=== PATIENT | male | born 2000 | race Caucasian/White ===

== ENCOUNTER 2024-08-19 15:26 | Inpatient (IN) ==
--- NOTE | 2024-08-19 16:09 | Emergency Department Note ---
History of Present Illness General Chief complaint: Laceration/Cut (Suture/Dermabond) Stated complaint: LT FOOT/LAC BY CHAINSAW Time Seen by Provider: 08/19/24 16:09 History of Present Illness Maximum Pain Intensity: 8 This is a 24-year-old male that presents to the emergency department via private vehicle with complaints of "left foot laceration". The patient notes that today around 2:45 PM he was operating a chainsaw cutting wood. In the saw caught causing a laceration through the boot of the left foot and then to the left foot. He points to a laceration overlying the distal left foot near the first MTP joint as the location of pain and injury. He denies any other pertinent past medical history, surgeries or allergies. He does note history of tetanus shot previously about 4-5 years ago but does wish to have this updated today. Allergies Allergy/AdvReac Type Severity Reaction Status Date / Time No Known Allergies Allergy Unverified 08/19/24 17:33 Past Med/Surg History Problem List (Updated 08/19/24 @ 17:38 by Alan Goff PA-C) Foot laceration (Acute) Open fracture of foot (Acute) Contact with chainsaw as cause of accidental injury (Acute) Social History Smoking Status: Never smoker Preferred Language: Bahamian Feels Safe at Home: Yes Review of Systems A total of 10 systems reviewed and were otherwise negative Physical Exam Vital Signs Vital Signs - 24 hr 08/19/24 15:50 Temperature 36.7 C Temperature Source Temporal Artery Scan Pulse Rate 72 Pulse Strength Normal Respiratory Rate 19 Respiratory Effort / Characteristics Non-Labored Spontaneous Respiratory Depth Normal Respiratory Pattern Regular Blood Pressure 135/85 Blood Pressure Mean 101 Blood Pressure Position Sitting Pulse Oximetry 99 Oxygen Delivery Method Room Air VITAL SIGNS - Vital signs and nursing notes were reviewed. Stable and afebrile. GENERAL -24-year-old male appearing his stated age who is in no acute distress. Communicates well with provider and answers questions appropriately. SKIN -large defect to the integument overlying the dorsal and medial aspect of the left first MTP joint region HEAD - NC/AT. EXTREMITIES - No clubbing or peripheral cyanosis. Patient with mild active extension of flexion of the left first toe at the MTP joint. Large wound as described above. +5/5 strength noted in UE/LE bilaterally. NEUROLOGIC -sensory intact to light touch that the left lower extremity without deficit PSYCH -alert, oriented and pleasant on exam Course Administered Medications Discontinued Medications Diphtheria/Pertussis/Tetanus Vacc (Diphther/Tetan/Pertus Vaccine (Tdap, Adol/Adult) 0.5ml) 0.5 ml IM .ONCE ONE Stop: 08/19/24 16:15 Last Admin: 08/19/24 16:37 Dose: 0.5 ml Documented By: NIKUNJ Cefazolin Sodium (Ancef 2000mg) 2,000 mg in 15 mls @ 3.75 mls/min IV NOW STA Stop: 08/19/24 16:17 Last Admin: 08/19/24 16:52 Dose: 3.75 mls/min Documented By: SARIAH Morphine Sulfate (Morphine Sulfate 4 Mg/Ml 1 Ml Carp\\Vial) 4 mg IV NOW STA Stop: 08/19/24 16:21 Last Admin: 08/19/24 16:42 Dose: 4 mg Documented By: NIKUNJ Ondansetron HCl (Ondansetron Inj 2 Mg/Ml 2 Ml Vial) 4 mg IV NOW STA Stop: 08/19/24 16:21 Last Admin: 08/19/24 16:40 Dose: 4 mg Documented By: NIKUNJ Medical Decision Making Imaging Data Radiologist's Impression: Foot X-Ray 08/19/24 16:03 HISTORY: No history is available at the time of interpretation. TECHNIQUE: Nonweightbearing left foot, 3 views COMPARISON: None. FINDINGS: Fracture or surgical defect involving the medial aspect of the metaphyseal region of the distal first metatarsal with overlying soft tissue laceration and edema. No radiopaque soft tissue foreign body is evident. There is no overlying bandage. The remaining bones appear intact. The surrounding soft tissues are otherwise unremarkable IMPRESSION: 1. Fracture or postsurgical defect involving the medial aspect of the metaphyseal region of the distal first metatarsal with overlying soft tissue laceration and edema. Recommend correlation with patient history as no history is provided. 2. Bones appear otherwise intact. Electronically signed by Reji Mike 08-19-2024 4:50 PM MDM Narrative Patient was seen and evaluated as above in room D04a. Review was performed of nursing notes and vital signs.After obtaining a thorough history and physical examination the above work up was performed. Patient presents to us today for evaluation of left foot trauma, he notes large laceration with a chainsaw. On my assessment and there is an irregular appearing defect overlying the dorsal and medial aspect of the left first MTP joint region within the soft tissues but this does appear to traverse to bone. Wound is deep, has caused irregular wounds to the soft tissue and is contaminated. Only a tiny bit of bleeding at the present time. No hemorrhage. Options of care were discussed with the patient. X-ray of the left foot was obtained. IV access with established. IV antibiotics, tetanus vaccine, morphine for pain and Zofran also administered. I reviewed benefit versus risk of these medications and through shared medical decision making we will refrain. He notes he had a tetanus shot about 4-5 years ago but would like an update today. This was ordered. Verbal consent was obtained from the patient and imaging of the foot was obtained and sent via our secure messaging service [employer] to the on-call orthopedist, Dr. Fisher. I spoke with Dr. Fisher. Plan is for intervention in the operative suite. Please refer to further documentation regarding his stay. GCS: 15 In the evaluation and treatment of this patient the following differential diagnoses were entertained: Open fracture, soft tissue injury, tendon injury, contamination, among others Impression & Plan Contact with [employer] as cause of accidental injury, Open fracture of foot, Foot laceration Discharge Plan Visit Data Chief Complaint: Laceration/Cut (Suture/Dermabond) Stated Complaint: LT FOOT/LAC BY CHAINSAW ED Provider: Telma Morrow ED Midlevel Provider: Alan Goff Discharge Problem: Contact with angelaw as cause of accidental injury, Open fracture of foot, Foot laceration Patient Disposition: Admitted As Inpatient Condition: Good Discharge Instructions Interventions: ED Discharge Assessment Last Done: 08/19/24 17:33 Forms Stand Alone Forms: My [facility] Referrals Referrals: PCP,NO [Primary Care Provider] - Discharge Problem: Open fracture of foot Qualifiers: Encounter type: initial encounter Laterality: left Qualified Code(s): S92.902B - Unspecified fracture of left foot, initial encounter for open fracture Foot laceration Qualifiers: Encounter type: initial encounter Laterality: left Qualified Code(s): S91.312A - Laceration without foreign body, left foot, initial encounter
[2024-08-19] MEDS: DIPHTHER/TETAN/PERTUS Vaccine (Tdap, Adol/Adult) 0.5mL IM ONE (16:37)
[2024-08-19] MEDS: ONDANSETRON INJ 2 MG/ML 2 ML VIAL IV STA (16:40)
[2024-08-19] MEDS: MoRPHine SULFATE 4 MG/ML 1 ML CARP\\VIAL IV STA (16:42)
--- NOTE | 2024-08-19 16:50 | XRay Report ---
HISTORY: No history is available at the time of interpretation. TECHNIQUE: Nonweightbearing left foot, 3 views COMPARISON: None. FINDINGS: Fracture or surgical defect involving the medial aspect of the metaphyseal region of the distal first metatarsal with overlying soft tissue laceration and edema. No radiopaque soft tissue foreign body is evident. There is no overlying bandage. The remaining bones appear intact. The surrounding soft tissues are otherwise unremarkable IMPRESSION: 1. Fracture or postsurgical defect involving the medial aspect of the metaphyseal region of the distal first metatarsal with overlying soft tissue laceration and edema. Recommend correlation with patient history as no history is provided. 2. Bones appear otherwise intact. Electronically signed by Reji Mike 08-19-2024 4:50 PM
[2024-08-19] MEDS: ceFAZolin 2000MG 2,000 MG/15 ML SYR IV STA (16:52)
[2024-08-19] MEDS ORDERED: ONDANSETRON INJ 2 MG/ML 2 ML VIAL IV PRN ×2 (17:17→18:47)
[2024-08-19] MEDS ORDERED: ATROPINE SULFATE 0.1 MG/ML 10ML SYR IV PRN (17:17)
[2024-08-19] MEDS ORDERED: NALOXONE HCL 0.4 MG/1 ML VIAL/CARP IV PRN (17:17)
[2024-08-19] MEDS ORDERED: HYDROmorphone INJ 1 MG/ML SYRINGE IV PRN (17:17)
[2024-08-19] MEDS ORDERED: FLUMAZENIL 0.1 MG/1 ML 10 ML VIAL IV PRN (17:17)
[2024-08-19] MEDS ORDERED: ePHEDrine sulfate 50 MG/ML AMP IV PRN (17:17)
[2024-08-19] MEDS ORDERED: PROMETHAZINE HCL 6.25 MG in SODIUM CHLORIDE 0.9% 50 ML IV PRN (17:17)
--- NOTE | 2024-08-19 17:17 | Anesthesiology Consultation ---
Date of Service August 19, 2024 Assessment & Plan Chart Review Chart Review: Acceptable Risk for Surgery and Patient NOT seen in Pre Admission Testing Consults Requested none ASA ASA1E Proposed Anesthesia Anesthesia Type: General Risk / Benefits Reviewed With: PT / POA / Parent / Guardian, Accepts Plan and Informed Consent Obtained History Height/Weight Height: 6 ft 3 in Weight: 79.379 kg Allergies Additional Notes: nkda Medications Additional Notes: none NPO Date Last Intake of Fluids: 08/19/24 Time Last Intake of Fluids: 14:00 Date Last Intake of Solids: 08/19/24 Time Last Intake of Solids: 14:00 Past Medical History unreamarkable Exercise / Class Metabolic Activity 1 > 8 Run/Swim/Ski/Tennis Past Anesthesia History No Hx of Anesthesia Complications and No Family Hx of Anesthesia Complications History of PONV No Hx of PONV and No Hx of Motion Sickness Social History Smoking Status: Never smoker Physical Exam Vital Signs Last Vital Signs Temp 36.7 C 08/19/24 15:50 Pulse 72 08/19/24 15:50 Resp 19 08/19/24 15:50 BP 135/85 08/19/24 15:50 Pulse Ox 99 08/19/24 15:50 O2 Del Method Room Air 08/19/24 15:50 Constitutional no acute distress ENMT Mouth: no dentition abnormality Thyromental Distance: > or= 3.5 Finger Breadths Mallampati Class: II Neck normal visual inspection, trachea midline and + facial hair; neck extension not limited Respiratory normal respiratory effort Auscultation: lungs clear to auscultation bilaterally Cardiovascular Rate/Rhythm: regular rate and regular rhythm Heart Sounds: no murmur Vessels: no carotid bruit Musculoskeletal Spine: normal cervical ROM and no pain with cervical ROM Extremities: + extremities abnormal to inspection (left foot) and full ROM of extremities Neurologic moves all extremities Motor/Sensory: no sensory deficit Psychiatric Orientation: alert and oriented x 3
[2024-08-19] MEDS ORDERED: PROPOFOL IV EMULSION 10 MG/ML 20 ML VIAL IV ONE (17:30)
[2024-08-19] MEDS ORDERED: SUCCINYLCHOLINE CHLORIDE 20 MG/ML 10 ML VIAL IV ONE (17:32)
[2024-08-19] MEDS ORDERED: MIDAZOLAM HCL 1 MG/ML 2ML VIAL ONE (17:35)
[2024-08-19] MEDS ORDERED: fentaNYL citrate PF 100 MCG/2 ML VIAL ONE ×2 (17:35→18:14)
--- NOTE | 2024-08-19 17:58 | History & Physical Report ---
Date of Service August 19, 2024 Assessment & Plan (1) Foot laceration: 24-year-old male with a left foot open chainsaw injury to the foot involving the bone and significant soft tissue destruction. Gross contamination. Plan: Orgran taken to the operating room and do an irrigation debridement. The primary goals are to prevent infection. He is gotten the antibiotics as well as tetanus prophylaxis. He will likely stay in the hospital overnight. May need a wound VAC postoperatively. Informed consent was obtained. (2) Open fracture of foot: (3) Contact with chainsaw as cause of accidental injury: History of Present Illness Chief Complaint: .Left foot chainsaw injury. Primary Care Provider: NO PCP Patient is a 24-year-old male [facility] gentleman who injured his foot about 230 today. He had chainsaw injury to the medial aspect of his left foot. He is brought to the emergency room with reveals open fractures of medial side of his foot. There is gross contamination. No other injuries. Last food was around 2:00.. Allergies Allergy/AdvReac Type Severity Reaction Status Date / Time No Known Allergies Allergy Unverified 08/19/24 17:33 Past Med/Surg History Problem List Foot laceration (Acute) Open fracture of foot (Acute) Contact with chainsaw as cause of accidental injury (Acute) Social History Smoking Status: Never smoker Preferred Language: British Feels Safe at Home: Yes Review of Systems All systems reviewed & are unremarkable except as noted in HPI & below. Physical Exam . Physical nation of left foot reveals a gaping wound to the medial aspect around his first MTP joint area. There are some bone destruction. Some gross contamination. He has difficulty flexing extending his toes. He is neurologically intact otherwise. Neck trachea midline, no thyromegaly Respiratory normal respiratory effort, lungs clear to auscultation Cardiovascular RRR, no murmur, no edema Gastrointestinal (Abdomen) normal bowel sounds, soft, nontender, no hepatosplenomegaly Results & Data Results & Data Laboratory Results . Diagnostic Findings . X-rays of the left foot were reviewed. Shows a obvious open soft tissue defect medial side of his foot. There is bone destruction of the metatarsal head. Some slight comminution. The joint itself looks okay. PG Care Time/CCT Total # of Minutes Spent Total Time Spent with Patient: Total time spent is greater than 50% in coordination of care (as documented) at patient's floor/unit and/or counseling patient: Coding Level of Care Code 43938 INT INP/OBS CARE 3/75MIN Diagnoses Foot laceration S91.312A Encounter type: initial encounter Laterality: left Open fracture of foot S92.902B Encounter type: initial encounter Laterality: left Contact with chainsaw as cause of accidental injury W29.3XXA (1) Foot laceration Encounter type: initial encounter Laterality: left Qualified Code(s): S91.312A - Laceration without foreign body, left foot, initial encounter (2) Open fracture of foot Encounter type: initial encounter Laterality: left Qualified Code(s): S92.902B - Unspecified fracture of left foot, initial encounter for open fracture
[2024-08-19] MEDS: GENTAMICIN SULFATE 120 MG in DEXTROSE 5% 100 ML IV ONE (18:17)
[2024-08-19] MEDS: LIDOCAINE 1% LOCAL 20 ML VIAL INFIL ONE (18:30)
[2024-08-19] MEDS ORDERED: ONDANSETRON INJ 2 MG/ML 2 ML VIAL ONE (18:30)
[2024-08-19] MEDS ORDERED: DEXAMETHASONE SOD INJ 4 MG/ML VIAL ONE (18:32)
[2024-08-19] MEDS ORDERED: GENTAMICIN CONSULT ACTIVE PRN (18:47)
[2024-08-19] MEDS ORDERED: ALUMINUM/MAGNESIUM SUSP 30 ML UDC PO PRN (18:47)
--- NOTE | 2024-08-19 18:52 | Operative Report ---
PG Post Operative Report Pre & Post Diagnosis Operation Date: 08/19/24 17:25 Pre-Op diagnosis: Left foot chainsaw injury with open fractures of the first metatarsal Postop diagnosis: Left foot chainsaw injury with open fracture of the first metatarsal with involvement of the first MTP joint. Comminution of the first metatarsal head. No complete fracture. I identified the patient and participated in the time-out.: Yes Procedure Operation Date: 08/19/24 17:25 Irrigation and debridement of left open foot wound and fracture and wound closure. Surgeon Wing Fisher MD Filterer Colton Cole PA-C Estimated Blood Loss 20 Findings Consistent with Post-Op Diagnosis Operative findings revealed a open wound to the medial aspect of his foot. The chainsaw injury did go to involve the metatarsal and took out a chunk of bone but the there was no complete fracture through the bone. There was some comminution. It did extend into the first MTP joint. The extensor and flexor tendons were intact. Moderate gross contamination. Specimens None Anesthesia Type General Complications none Indications The patient is a 24-year-old [facility] gentleman who sustained a chainsaw injury to his left foot earlier today. He was brought to emergency room where x-rays revealed open no wound with some moderate to gross contamination and involvement of the metatarsal. The patient indicated for surgical management, irrigation debridement. It was unclear on preoperative exam whether this involved the first MTP joint. Description of Procedure The patient was taken the operating, identified, placed on the operating table in the supine position. All conductors were appropriately padded. A general anesthetic was implemented. The patient did receive IV Ancef in the ER along with tetanus prophylaxis. We gave him some additional gentamicin preoperatively. A left calf tourniquet was placed. The left foot was then scrubbed with a Hibiclens and then prepped with Betadine in usual sterile fashion. The left leg was elevated exsanguinated with use of an Esmarch and the tourniquet was placed at 300 mmHg. I first ellipsed the edges of the wound site to get rid of the edge tissues and contaminated tissues. I then took out the comminuted bone fragments. Debrided the wound of all obvious debris. We then irrigated the wound extensively. The wound did extend into the first MTP joint. We did distract this joint and irrigated this extensively with 3 L of pulsatile lavage solution. Once this was complete the tourniquet was let down for turn time of 8 minutes. Hemostasis surges electrocautery. Skin was then closed with 2-0 nylon suture in a simple fashion. The foot was then cleaned and dried a sterile dressing was Xeroform, 4 fours, sterile cast padding and a Coban wrap followed by postop shoe were applied. The patient then brought out of general esthesia and transferred to the recovery room in stable condition. The patient tolerated the procedure well and there were no complications. Colton Cole, my physician assistant department manager, was present for the entire procedure. His assistance was required for proper patient positioning, prepping and draping, surgical exposure, retraction, perform the technical details of the operation, closure of the incision site, and placement of the postoperative bandage and shoe. I attest to the content of the Intraoperative Record and any orders documented therein. Any exceptions are noted below.
[2024-08-19] MEDS: fentaNYL citrate PF 100 MCG/2 ML VIAL IV PRN (19:10)
--- NOTE | 2024-08-19 19:34 | Anesthesiology Progress Note ---
Date of Service August 19, 2024 Anesthesia Post Procedure Vital Signs Vital Signs: Temp Pulse Pulse Pulse Resp BP BP 08/19/24 19:25 65 21 104/72 08/19/24 19:15 68 18 114/75 08/19/24 19:05 67 15 118/70 08/19/24 18:56 36 C L 71 15 116/74 08/19/24 17:41 67 08/19/24 17:35 66 16 128/81 08/19/24 15:50 36.7 C 72 19 135/85 Pulse Ox O2 Del Method O2 Flow Rate 08/19/24 19:25 98 Room Air 08/19/24 19:15 98 Room Air 08/19/24 19:05 99 Room Air 08/19/24 18:56 100 Oxymask 6 08/19/24 17:41 08/19/24 17:35 97 Room Air 08/19/24 15:50 99 Room Air Pain Intensity Left Foot: Pain Intensity: 2 Transfer of Care Handoff Completed per policy Notes Mental Status: alert / awake / arousable Patient Amnestic to Procedure: Yes Nausea / Vomiting: adequately controlled Pain: adequately controlled Airway Patency, RR, SpO2: stable & adequate BP & HR: stable & adequate Hydration State: stable & adequate Anesthetic Complications: no major complications apparent
[2024-08-19] MEDS: ASPIRIN 81 MG ECTAB PO SCH (20:40)
[2024-08-19] MEDS: oxyCODONE/ACETAMINOPHEN 5mg/325mg TAB PO PRN (20:47)
[2024-08-19 21:34] VITALS: O2SAT 98
[2024-08-19] MEDS: ACETAMINOPHEN 325 MG TAB PO PRN (23:14)
[2024-08-19] MEDS: Patient's ALLERGY Info needs ENTERED STA (23:32)
[2024-08-20] MEDS: ceFAZolin 2000MG 2,000 MG/15 ML SYR IV SCH (01:10)
[2024-08-20] MEDS: GENTAMICIN SULFATE 550 MG in DEXTROSE 5% 100 ML IV ONE (01:13)
--- NOTE | 2024-08-20 07:59 | Orthopedic Progress Note ---
Date of Service August 20, 2024 Assessment & Plan (1) Open fracture of foot: Plan: 24-year-old male postop day 1 from I&D of a left forefoot chainsaw injury with bone involved. He is doing pretty well. Plan: We are going to finish out his 24 hours of IV antibiotics and then convert him to p.o. Augmentin for 5 days. Will get him up and mobilize some today. Limited weightbearing. Likely discharge later this morning or early afternoon. (2) Foot laceration: (3) Contact with chainsaw as cause of accidental injury: Admission and Anticipated Discharge Date Admission Date: August 19, 2024 Subjective 24-year-old male postop day 1 from I&D of a open for foot injury from a chainsaw. He is doing pretty well this morning. Not much pain when lying down but moderately discomfort when walking. He has been to the bathroom a couple times. No new complaints. No chest pain. Physical Exam Physical Exam: Physical exam shows a pleasant 24-year-old male. Lying bed looks pretty comfortable. Examination of the foot reveals the dressing be clean dry and intact. His toes are well-perfused. There is no drainage. He is neurologically intact. Results & Data Vital Signs (Past 12 Hours) Vital Signs Temp Pulse Resp BP Pulse Ox O2 Del Method 08/20/24 01:22 36.7 C 65 18 108/63 98 Room Air 08/19/24 22:00 36.7 C 72 18 120/63 98 Room Air 08/19/24 21:00 36.7 C 61 16 115/69 98 Room Air 08/19/24 20:43 36.7 C 62 14 121/76 97 Room Air 08/19/24 20:00 36.7 C 62 16 120/77 100 Room Air (1) Open fracture of foot Encounter type: initial encounter Laterality: left Qualified Code(s): S92.902B - Unspecified fracture of left foot, initial encounter for open fracture (2) Foot laceration Encounter type: initial encounter Laterality: left Qualified Code(s): S91.312A - Laceration without foreign body, left foot, initial encounter
[2024-08-20 08:04] VITALS: BP 117/71; PULSE 62; RESP 16; TEMP 97.5
--- NOTE | 2024-08-23 11:55 | Discharge Summary ---
Date of Service August 23, 2024 Admission HPI (Per Admitting) Patient is a 24-year-old male [facility] gentleman who injured his foot about 230 today. He had chainsaw injury to the medial aspect of his left foot. He is brought to the emergency room with reveals open fractures of medial side of his foot. There is gross contamination. No other injuries. Last food was around 2:00.. Admission Exam (Per Admitting) . Physical nation of left foot reveals a gaping wound to the medial aspect around his first MTP joint area. There are some bone destruction. Some gross contamination. He has difficulty flexing extending his toes. He is neurologically intact otherwise. Principal Diagnosis Same as "Discharge Diagnosis" noted below under Discharge Instructions. Discharge Data Procedures Performed Operation Date: 08/19/24 17:25 Actual Procedures p Irrigation and Debridement of Open Fracture, Left Foot(Left) - Wing Fisher MD Hospital Course (1) Foot laceration: This is a 24 year old patient admitted on 08/19/24 after a chainsaw injury to his left foot and underwent I and D/wound closure. He tolerated the procedure well and there were no complications. Transferred to the PACU post op and later to the orthopedic floor for further care. He was given ancef and gentamycin for antibiotic prophylaxis and tetanus vaccine was updated. He was also given aspirin for DVT prophylaxis. Vital signs were monitored during his hospital stay and remained stable. Did not require any blood transfusions. There were no complications during his hospital stay. By post op day #1the patient was tolerating a regular diet, pain was reasonably controlled with oral pain medicine. On post op day #1 the patient was discharged home. He was given printed discharge instructions including prescriptions for percocet and augmentin. Follow up approximately 2 weeks post op or sooner if there are problems or concerns. Encounter type: initial encounter Laterality: left Qualified Code(s): S91.312A - Laceration without foreign body, left foot, initial encounter Discharge Plan Discharge Items Patient Disposition: Home - Self-Care Reason For Visit: LEFT FOOT OPEN FRACTURES Discharge Diagnosis: Left Foot chainsaw injury with Open Fracture Condition on Discharge: Good Activity: Per Instructions section Activity Comment: Limited walking. Foot elevation as much as possible Weightbearing: Full weightbearing Weightbearing Comment: Weightbear as tolerated but elevate foot as much as possible Non-emergency contact: Surgeon Call non-emergency contact if: you have any medication questions Follow-up/Referrals: Wing Fisher MD [Physician] - (Orthopedic follow-up 2-3 weeks) PCP,NO [Primary Care Provider] - Diet: Regular Addtl Attending Provider Instructions: Limited walking for next 3 weeks Keep dressing/bandage clean, dry and in place until follow-up appointment Elevate foot as much as possible. Pending Studies at Discharge: No Stand-Alone Forms: [facility], Smoking Cessation Medications and DC Order Prescriptions: New oxycodone-acetaminophen [Percocet] 5-325 mg Tablet 1 - 2 tab PO Q8H PRN (Reason: pain) Qty: 30 0RF Rx Instructions: Take as needed for Pain. amoxicillin-pot clavulanate [Augmentin] 500-125 mg tablet 1 tab PO Q8H 5 Days Qty: 15 0RF Rx Instructions: Take to prevent infection. Discharge Orders: Discharge Order (Routine); Ordered 08/20/24 Ordered By: Wing Fisher Admission Data Admit Date/Time: 08/19/24 18:47 Attending Provider: Wing Fisher Admit Provider: Gisel Fisher Primary Care Provider: PCP,NO Other Interventions: Discharge Summary Assessment (RN) Last Done: 08/20/24 10:31
== END 2024-08-20 11:50 | disposition home or self-care (01) | DRG 505 ==
LOC: EDBD → ED 15:26 → 3N 17:33 → MERGE 18:47 → 3N 18:47 → SUATTDRO 18:47